=== PATIENT | male | born 1995 | race Caucasian/White ===

== ENCOUNTER 2021-03-07 19:09 | Inpatient (IN) | payer SELFPAY ==
[2021-03-07 21:04] LABS: Albumin 4.7 g/dL (3.4-5.0); Bilirubin Direct 0.3 mg/dL (0-0.2); Bilirubin Total 1.3 mg/dL (0.2-1.0); Protein, Total 7.7 g/dL (6.4-8.2)
[2021-03-07 21:17] LABS: Absolute Lymphocytes (CBC) 0.7 K/uL (0.7-4.9); Basophils % 0.1 % (0-1.3); Lymphocytes % 3.5 % (15.3-44.8); MPV 8.3 fL (7.6-11.3); RBC Red Blood Cell Count 4.92 M/uL (4.33-5.43)
[2021-03-07] MEDS ORDERED: NA CHLORIDE 0.9% 1,000 ML ONE ×2 (22:23→22:36)
[2021-03-07] MEDS ORDERED: FAMOTIDINE 20 MG/2 ML VIAL IV ONE (22:23)
[2021-03-07] MEDS ORDERED: MORPHINE 2 MG/ML SYR ONE ×2 (22:23→22:36)
[2021-03-07] MEDS ORDERED: ONDANSETRON 4 MG/2 ML VIAL ONE (22:23)
[2021-03-07 22:39] LABS: Urine Blood Negative (Negative); Urine Glucose Negative (Negative); Urine Protein Trace (Negative); Urine Specific Gravity >=1.030 (1.005-1.030); Urine pH 5.5 (5.0-7.0)
--- NOTE | 2021-03-07 23:20 | ER ---
Nurse's Notes [facility] [place] Name: Kana Zapien Age: 25 yrs Sex: Male : 1995 Arrival Date: 03/07/2021 Time: 19:32 Bed 24 Private MD: Diagnosis: Acute appendicitis with localized peritonitis;Elevated white blood cell count;Abdominal pain, Generalized Presentation: 03/07 20:15 Chief complaint: Patient states: Pt stated, " I started felling bad when I woke up at kg 0700 and started vomiting at 16:00, my stomach and back hurts". Coronavirus screen: Vaccine status: Patient reports being unvaccinated. Client presents with at least one sign or symptom that may indicate coronavirus-19. Standard/surgical mask placed on the client. Provider contacted for isolation considerations. Ebola Screen: Patient negative for fever greater than or equal to 101.5 degrees Fahrenheit, and additional compatible Ebola Virus Disease symptoms Patient denies exposure to infectious person. Patient denies travel to an Ebola-affected area in the 21 days before illness onset. Initial Sepsis Screen: Does the patient meet any 2 criteria? No. Patient's initial sepsis screen is negative. Does the patient have a suspected source of infection? No. Patient's initial sepsis screen is negative. Risk Assessment: Do you want to hurt yourself or someone else? Patient reports no desire to harm self or others. Onset of symptoms was March 07, 2021 at 07:00. 20:15 Method Of Arrival: Ambulatory kg 20:15 Acuity: COREY 4 kg Triage Assessment: 20:19 General: Appears in no apparent distress. Behavior is calm, cooperative, appropriate kg for age, quiet. Pain: Complains of pain in abdomen Pain radiates to back. GI: Reports lower abdominal pain, upper abdominal pain, nausea, vomiting. Historical: - Allergies: 20:19 No Known Allergies; kg - Home Meds: 20:19 None [Active]; kg - PMHx: 20:19 None; kg - Immunization history:: Adult Immunizations not up to date, Client reports having NOT received the Covid vaccine. - Social history:: Smoking status: Reported history of juuling and/or vaping. Patient uses alcohol, weekly. - Family history:: not pertinent. Screenin:20 Abuse screen: Denies threats or abuse. Denies injuries from another. Nutritional kg screening: No deficits noted. Tuberculosis screening: No symptoms or risk factors identified. Fall Risk None identified. Assessment: 22:00 General: Appears in no apparent distress. comfortable, Behavior is calm, cooperative, ld1 appropriate for age. Pain: Complains of pain in right lower quadrant Pain does not radiate. Pain currently is 8 out of 10 on a pain scale. Quality of pain is described as throbbing, Pain began 3 hours ago. Is continuous. 22:00 Neuro: Level of Consciousness is awake, alert, obeys commands, Oriented to person, ld1 place, time, situation. Cardiovascular: Capillary refill < 3 seconds Patient's skin is warm and dry. Respiratory: Airway is patent Respiratory effort is even, unlabored, Respiratory pattern is regular, symmetrical. GI: Abdomen is flat, non-distended, Reports lower abdominal pain, nausea, vomiting. : No signs and/or symptoms were reported regarding the genitourinary system. EENT: No signs and/or symptoms were reported regarding the EENT system. Derm: No signs and/or symptoms reported regarding the dermatologic system. Musculoskeletal: No signs and/or symptoms reported regarding the musculoskeletal system. 23:35 Reassessment: Patient appears in no apparent distress at this time. Patient and/or ld1 family updated on plan of care and expected duration. Pain level reassessed. Patient is alert, oriented x 3, equal unlabored respirations, skin warm/dry/pink. Vital Signs: 20:15 BP 129 / 72; Pulse 72; Resp 93; Temp 97.8(O); Pulse Ox 93% on R/A; Weight 83.91 kg (R); kg Height 5 ft. 10 in. (177.80 cm) (R); Pain 8/10; 22:00 BP 126 / 70; Pulse 89; Resp 18; Pulse Ox 95% on R/A; ld1 23:35 BP 123 / 74; Pulse 85; Resp 18; Pulse Ox 100% on R/A; ld1 20:15 Body Mass Index 26.54 (83.91 kg, 177.80 cm) kg ED Course: 19:32 Patient arrived in ED. cf2 19:36 Luis Antonio Benjamin MD is Attending Physician. stephanie 20:19 Triage completed. kg 20:19 Arm band placed on left wrist. kg 20:20 Patient has correct armband on for positive identification. kg 22:44 CT Abd/Pelvis - IV Contrast Only In Process Unspecified. EDMS 22:53 Chest Single View XRAY In Process Unspecified. EDMS 23:17 Cesar Hernandez MD is Hospitalizing Provider. [facility] 03/08 01:36 No provider procedures requiring assistance completed. Patient admitted, IV remains in ea place. Administered Medications: 03/07 22:07 Drug: NS 0.9% 1000 ml Route: IV; Rate: 1 bolus; Site: right antecubital; ld1 23:34 Follow up: Response: No adverse reaction; IV Status: Completed infusion; IV Intake: ld1 1000ml 22:07 Drug: Zofran (Ondansetron) 4 mg Route: IVP; Site: right antecubital; ld1 22:47 Follow up: Response: No adverse reaction ld1 22:07 Drug: morphine 2 mg Route: IVP; Site: right antecubital; ld1 22:07 Drug: Pepcid (famotidine) 20 mg Route: IVP; Site: right antecubital; ld1 22:38 Follow up: Response: No adverse reaction ld1 22:07 Drug: NS 0.9% 1000 ml Route: IV; Rate: 1 bolus; Site: right antecubital; ld1 23:34 Follow up: Response: No adverse reaction; IV Status: Completed infusion; IV Intake: ld1 1000ml 22:15 Drug: morphine 2 mg Route: IVP; Site: right antecubital; ld1 22:46 Follow up: Response: No adverse reaction ld1 22:46 Not Given (Physician Discretion): NS 0.9% 1000 ml IV at 1 bolus Per protocol; 1000 mL ld1 bolus 23:34 Drug: Zosyn (piperacillin-tazobactam) 3.375 grams Route: IVPB; Infused Over: 60 mins; ld1 Site: right antecubital; 03/08 00:40 Follow up: Response: No adverse reaction; IV Status: Completed infusion; IV Intake: ea 100ml Intake: 03/07 23:34 IV: 1000ml; Total: 1000ml. ld1 23:34 IV: 1000ml; Total: 2000ml. ld1 03/08 00:40 IV: 100ml; Total: 2100ml. ea Outcome: 03/07 23:19 Decision to Hospitalize by Provider. stephanie 03/08 01:36 Patient left the ED. jeannette 01:37 Admitted to Med/surg accompanied by tech, via wheelchair, room 216, with chart, Report ea called to Receiving nurse on second :37 Condition: stable 01:37 Instructed on the need for admit, Demonstrated understanding of instructions. Signatures: Dispatcher [employer] EDLuis Antonio Musa MD MD cha Antunez, Elena, RN RN Ruiz Obrien cf2 Alysa Ponce, RN RN ld1 Briana Lo, DEZ RN kg
--- NOTE | 2021-03-07 23:20 | EDPHYS ---
Physician Documentation [facility] Name: Kana Zapien Age: 25 yrs Sex: Male : 1995 Arrival Date: 03/07/2021 Time: 19:32 Bed 24 Private MD: Luis Antonio Rodriguez HPI: 03/07 21:54 This 25 yrs old Male presents to ER via Ambulatory with complaints of BODY stephanie PAIN, Vomiting, Back Pain, Cough. Historical: - Allergies: 20:19 No Known Allergies; kg - Home Meds: 20:19 None [Active]; kg - PMHx: 20:19 None; kg - Immunization history:: Adult Immunizations not up to date, Client reports having NOT received the Covid vaccine. - Social history:: Smoking status: Reported history of juuling and/or vaping. Patient uses alcohol, weekly. - Family history:: not pertinent. ROS: 21:54 Constitutional: Negative for fever, chills, and weight loss, Eyes: Negative for injury, stephanie pain, redness, and discharge, ENT: Negative for injury, pain, and discharge, Neck: Negative for injury, pain, and swelling, Cardiovascular: Negative for chest pain, palpitations, and edema, Respiratory: Negative for shortness of breath, cough, wheezing, and pleuritic chest pain, : Negative for injury, bleeding, discharge, and swelling, MS/Extremity: Negative for injury and deformity, Skin: Negative for injury, rash, and discoloration, Neuro: Negative for headache, weakness, numbness, tingling, and seizure, Psych: Negative for depression, anxiety, suicide ideation, homicidal ideation, and hallucinations, Allergy/Immunology: Negative for hives, rash, and allergies, Endocrine: Negative for neck swelling, polydipsia, polyuria, polyphagia, and marked weight changes, Hematologic/Lymphatic: Negative for swollen nodes, abnormal bleeding, and unusual bruising. 21:54 Abdomen/GI: Positive for abdominal pain, of the right upper quadrant, left upper quadrant, right lower quadrant and left lower quadrant. Exam: 21:54 Constitutional: This is a well developed, well nourished patient who is awake, alert, stephanie and in no acute distress. Head/Face: Normocephalic, atraumatic. Eyes: Pupils equal round and reactive to light, extra-ocular motions intact. Lids and lashes normal. Conjunctiva and sclera are non-icteric and not injected. Cornea within normal limits. Periorbital areas with no swelling, redness, or edema. ENT: Nares patent. No nasal discharge, no septal abnormalities noted. Tympanic membranes are normal and external auditory canals are clear. Oropharynx with no redness, swelling, or masses, exudates, or evidence of obstruction, uvula midline. Mucous membranes moist. Neck: Trachea midline, no thyromegaly or masses palpated, and no cervical lymphadenopathy. Supple, full range of motion without nuchal rigidity, or vertebral point tenderness. No Meningismus. Chest/axilla: Normal chest wall appearance and motion. Nontender with no deformity. No lesions are appreciated. Cardiovascular: Regular rate and rhythm with a normal S1 and S2. No gallops, murmurs, or rubs. Normal PMI, no JVD. No pulse deficits. Respiratory: Lungs have equal breath sounds bilaterally, clear to auscultation and percussion. No rales, rhonchi or wheezes noted. No increased work of breathing, no retractions or nasal flaring. Back: No spinal tenderness. No costovertebral tenderness. Full range of motion. Male : Normal genitalia with no discharge or lesions. Skin: Warm, dry with normal turgor. Normal color with no rashes, no lesions, and no evidence of cellulitis. MS/ Extremity: Pulses equal, no cyanosis. Neurovascular intact. Full, normal range of motion. Neuro: Awake and alert, GCS 15, oriented to person, place, time, and situation. Cranial nerves II-XII grossly intact. Motor strength 5/5 in all extremities. Sensory grossly intact. Cerebellar exam normal. Normal gait. Psych: Awake, alert, with orientation to person, place and time. Behavior, mood, and affect are within normal limits. 21:54 Respiratory: the patient does not display signs of respiratory distress, Respirations: normal, Breath sounds: are clear throughout. 21:54 Abdomen/GI: Inspection: abdomen appears normal, Bowel sounds: normal, Palpation: moderate abdominal tenderness, in the right upper quadrant, left upper quadrant, right lower quadrant and left lower quadrant, Liver: no appreciated palpable abnormalities, Hernia: not appreciated. Vital Signs: 20:15 BP 129 / 72; Pulse 72; Resp 93; Temp 97.8(O); Pulse Ox 93% on R/A; Weight 83.91 kg (R); kg Height 5 ft. 10 in. (177.80 cm) (R); Pain 8/10; 22:00 BP 126 / 70; Pulse 89; Resp 18; Pulse Ox 95% on R/A; ld1 23:35 BP 123 / 74; Pulse 85; Resp 18; Pulse Ox 100% on R/A; ld1 20:15 Body Mass Index 26.54 (83.91 kg, 177.80 cm) kg MDM: 21:49 Patient medically screened. [facility] 21:55 Differential diagnosis: Nonspecific abd pain, gastritis, cholecystitis, pancreatitis, stephanie appendicitis, diverticulitis, viral gastroenteritis, gastroenteritis. Data reviewed: vital signs, nurses notes, lab test result(s), EKG, radiologic studies, CT scan, plain films. Data interpreted: monitoring specialist: rate is 72 beats/min, rhythm is regular, Pulse oximetry: on room air is 93 %. Test interpretation: by ED physician or midlevel provider: plain radiologic studies. Counseling: I had a detailed discussion with the patient and/or guardian regarding: the historical points, exam findings, and any diagnostic results supporting the discharge/admit diagnosis, lab results, radiology results. 03/07 20:21 Order name: Basic Metabolic Panel; Complete Time: 21:52 kg 03/07 20:21 Order name: CBC with Diff 03/07 20:21 Order name: Hepatic Function; Complete Time: 21:52 kg 03/07 20:21 Order name: Lipase; Complete Time: 21:52 kg 03/07 20:26 Order name: Flu; Complete Time: 21:52 kg 03/07 21:42 Order name: SARS-COV-2 RT PCR; Complete Time: 21:52 [facility] 03/07 21:54 Order name: Chest Single View XRAY [facility] 03/07 21:54 Order name: CT Abd/Pelvis - IV Contrast Only [facility] 03/07 21:57 Order name: Urine Culture [facility] 03/07 21:58 Order name: Urine Culture [facility] 03/07 22:37 Order name: Urine Dipstick-Ancillary; Complete Time: 22:40 [facility] 03/07 23:23 Order name: Manual Differential [facility] 03/07 20:21 Order name: IV Saline Lock; Complete Time: 21:50 kg 03/07 20:21 Order name: Labs collected and sent; Complete Time: 21:49 kg 03/07 21:57 Order name: Urine Dipstick-Ancillary (obtain specimen); Complete Time: 22:37 stephanie 03/07 23:28 Order name: NPO EDMS Administered Medications: 22:07 Drug: NS 0.9% 1000 ml Route: IV; Rate: 1 bolus; Site: right antecubital; ld1 23:34 Follow up: Response: No adverse reaction; IV Status: Completed infusion; IV Intake: ld1 1000ml 22:07 Drug: Zofran (Ondansetron) 4 mg Route: IVP; Site: right antecubital; ld1 22:47 Follow up: Response: No adverse reaction ld1 22:07 Drug: morphine 2 mg Route: IVP; Site: right antecubital; ld1 22:07 Drug: Pepcid (famotidine) 20 mg Route: IVP; Site: right antecubital; ld1 22:38 Follow up: Response: No adverse reaction ld1 22:07 Drug: NS 0.9% 1000 ml Route: IV; Rate: 1 bolus; Site: right antecubital; ld1 23:34 Follow up: Response: No adverse reaction; IV Status: Completed infusion; IV Intake: ld1 1000ml 22:15 Drug: morphine 2 mg Route: IVP; Site: right antecubital; ld1 22:46 Follow up: Response: No adverse reaction ld1 22:46 Not Given (Physician Discretion): NS 0.9% 1000 ml IV at 1 bolus Per protocol; 1000 mL ld1 bolus 23:34 Drug: Zosyn (piperacillin-tazobactam) 3.375 grams Route: IVPB; Infused Over: 60 mins; ld1 Site: right antecubital; 03/08 00:40 Follow up: Response: No adverse reaction; IV Status: Completed infusion; IV Intake: ea 100ml Disposition Summary: 03/07/21 23:19 Hospitalization Ordered Hospitalization Status: Observation stephanie Provider: Cesar Hernandez cha Location: Telemetry/MedSur (observation) stephanie Condition: Stable stephanie Problem: new stephanie Symptoms: have improved stephanie Bed/Room Type: Standard stephanie Room Assignment: 216(03/08/21 00:23) tl1 Diagnosis - Acute appendicitis with localized peritonitis stephanie - Elevated white blood cell count stephanie - Abdominal pain, Generalized stephanie Forms: - Medication Reconciliation Form stephanie - SBAR form stephanie Signatures: Dispatcher [employer] EDLuis Antonio Musa MD MD cha Lasagna, Tonya RN RN tl1 Alysa Ponce RN RN ld1 Briana Lo RN RN kg Antunez, Elena RN ea Corrections: (The following items were deleted from the chart) 03/07 20:41 20:22 CORONAVIRUS+MR.LAB.BRZ ordered. [facility] 03/08 00:23 03/07 23:19 stephanie wolf1
[2021-03-07] MEDS ORDERED: ONDANSETRON 4 MG/2 ML VIAL IV PRN (23:26)
[2021-03-07] MEDS ORDERED: MORPHINE 4 MG/ML SYR IV PRN (23:26)
[2021-03-07] MEDS ORDERED: ACETAMINOPHEN 325 MG TABLET PO PRN (23:26)
[2021-03-07 23:38] LABS: Blood Morphology Comment NOT SEEN (NOT SEEN); Platelet Estimate ADEQ
[2021-03-07] MEDS ORDERED: PIPER/TAZO/NS 3.375gm 3.375 GM/100 ML BAG ONE (23:39)
[2021-03-07] MEDS ORDERED: D5 0.45 NS 1,000 ML IV SCH (23:45)
[2021-03-08 02:16] VITALS: BMI 26.5
[2021-03-08 05:29] LABS: Absolute Lymphocytes (CBC) 1.4 K/uL (0.7-4.9); Basophils % 0.2 % (0-1.3); Hematocrit 41.4 % (39.6-49.0); Lymphocytes % 9.4 % (15.3-44.8); MPV 8.2 fL (7.6-11.3); RBC Red Blood Cell Count 4.39 M/uL (4.33-5.43)
[2021-03-08 05:56] LABS: ALT/SGPT 34 U/L (12-78); AST/SGOT 15 U/L (15-37); Albumin 3.6 g/dL (3.4-5.0); Alkaline Phosphatase 42 U/L (45-117); BUN Blood Urea Nitrogen 11 mg/dL (7-18); Bicarbonate 29 mmol/L (21-32); Bilirubin Direct 0.3 mg/dL (0-0.2); Bilirubin Total 1.4 mg/dL (0.2-1.0); Glucose Level 143 mg/dL (74-106); Lipase 81 U/L (73-393); Potassium 3.8 mmol/L (3.5-5.1); Protein, Total 6.1 g/dL (6.4-8.2); Sodium Level 142 mmol/L (136-145)
[2021-03-08] MEDS ORDERED: Ringers Lactate 1,000 ML IV ONE (08:35)
[2021-03-08] MEDS ORDERED: MIDAZOLAM HCL 2 MG/2 ML INJ ONE (08:49)
[2021-03-08] MEDS ORDERED: dexAMETHasone 10 MG/ML VIAL ONE (08:49)
[2021-03-08] MEDS ORDERED: LIDOCAINE 1% MPF 5 ML VIAL ONE (08:49)
[2021-03-08] MEDS ORDERED: FENTANYL CITR 100 MCG/2 ML ONE (08:49)
[2021-03-08] MEDS ORDERED: propofoL 200 MG/20 ML VIAL IV ONE (08:49)
--- NOTE | 2021-03-08 08:49 | RAD REPORT ---
EXAM DESCRIPTION: RAD - Chest Single View - 03/07/2021 10:53 pm
[2021-03-08] MEDS ORDERED: ONDANSETRON 4 MG/2 ML VIAL ONE (08:50)
[2021-03-08] MEDS ORDERED: ROCURONIUM 50 MG/5 ML VIAL IV ONE (08:50)
[2021-03-08] MEDS ORDERED: PIPER/TAZO/NS 3.375gm 3.375 GM/100 ML BAG IVPB SCH ×2 (09:00)
[2021-03-08] MEDS ORDERED: FAMOTIDINE 20 MG/2 ML VIAL IV SCH (09:00)
[2021-03-08] MEDS ORDERED: BUPIVACAINE 0.5% PF 10 ML VIAL ONE (09:20)
--- NOTE | 2021-03-08 09:43 | HP ---
Date of Admission: 03/08/2021 Diagnosis: Acute appendicitis, acute abdominal pain. History Of Present Illness: This is a case of a male, who comes to us overnight with right lower amanda drant abdominal pain associated with nausea and vomiting. Patient in the ER did workup and found the patient to have appendicitis and a surgical evaluation was requested. He denies any dysuria, hematu katie, hematochezia, melena. Denies any recent travelling out of the country. Denies any family membe r sick at home. Past Medical History: None. Allergies: NONE. Past Surgical History: None. Social History: He does smoke. He does not drink alcohol. Family History: Unremarkable. Review of Systems: As above. See H and P, otherwise. 10 points, otherwise, unremarkable. Physical Examination: General: Patient is awake and alert. HEENT: Pupils are equal and reactive. Anicteric. Neck: Supple. Chest: Clear. Abdomen: Soft and depressible. There is right lower quadrant tenderness with psoas signs positive w ith localized peritonitis. Extremities: Good capillary refill. Neurologic: Cranial nerves 2 through 12 grossly within normal limits. Laboratory Data: WBC count of 18, hemoglobin 16.5, with chloride is 108. CAT scan of the abdomen an d pelvis, official report still pending, preliminary shows acute appendicitis. Assessment: A 25-year-old patient with the right lower quadrant abdominal pain, acute appendicitis. The benefits, alternatives, and risks of laparoscopic possible open appendectomy fully explained whi ch include, but not limited to, infection, bleeding, damage to adjacent structures, anesthesia compli cation, abscess, CA, and even . He also understands this may not relieve the symptoms. He migh t need more than one surgical intervention. The OR was called stat. /MODL Voice ID: [id number]
--- NOTE | 2021-03-08 10:10 | P.BOP ---
Preoperative diagnosis: acute appendicitis Postoperative diagnosis: same Primary procedure: Laparoscopic appendectomy Estimated blood loss: <10cc Specimen: barney Findings: as above Anesthesia: General Complications: None Transferred to: Recovery Room Condition: Good
[2021-03-08] MEDS ORDERED: KETOROLAC 30 MG/ML INJ ONE (10:18)
[2021-03-08] MEDS ORDERED: GLYCOPYRROLATE 0.2 MG/ML SYR ONE (10:18)
[2021-03-08] MEDS ORDERED: NEOSTIGMINE 1 MG/ML -5 ML ONE (10:20)
[2021-03-08] MEDS ORDERED: HYDROCODONE/APAP 5/325 MG TAB PO PRN (10:30)
[2021-03-08 10:42] VITALS: O2SAT 99
--- NOTE | 2021-03-08 12:46 | RAD REPORT ---
EXAM DESCRIPTION: CT - Abdomen Pelvis W Contrast - 03/08/2021 6:39 am ADDENDUM: THIS REPORT CONTAINS FINDINGS THAT MAY BE CRITICAL TO PATIENT'S CARE: The findings were verbally discussed via telephone conference with Dr. Luis Antonio Benjamin by Dr. Negron on 03/07/2021 11:08 PM CDT. The results were acknowledged and understood. Electronically signed by: Jimmy Negron DO 03/07/2021 11:08 PM CDT End of Addendum EXAM DESCRIPTION: CT Abdomen and Pelvis With Intravenous Contrast CLINICAL HISTORY: The patient is 25 years old and is Male; ABD PAIN TECHNIQUE: Axial computed tomography images of the abdomen and pelvis with intravenous contrast. S agittal and coronal reformatted images were created and reviewed. This CT exam was performed using one or more of the following dose reduction techniques: automated exposure control, adjustment of t he mA and/or kV according to patient size, and/or use of iterative reconstruction technique. DLP: 1211 mGy*cm COMPARISON: None. FINDINGS: LUNG BASES: Lung bases are clear. HEART: Visualized heart is normal. ABDOMEN: LIVER: Unremarkable. No mass. GALLBLADDER AND BILE DUCTS: Unremarkable. No calcified stones. No ductal dilation. PANCREAS: Unremarkable. No mass. No ductal dilation. SPLEEN: Unremarkable. No splenomegaly. ADRENALS: Unremarkable. No mass. KIDNEYS AND URETERS: Unremarkable. No solid mass. No hydronephrosis. STOMACH AND BOWEL: Unremarkable. No obstruction. No mucosal thickening. PELVIS: APPENDIX: Thickening of the appendix measuring up to 1.1 cm. Associated mucosal enhancement and per iappendiceal stranding. BLADDER: Bladder is decompressed. REPRODUCTIVE: Unremarkable as visualized. ABDOMEN and PELVIS: INTRAPERITONEAL SPACE: Unremarkable. No free air. No significant fluid collection. BONES/JOINTS: No acute fracture. No dislocation. SOFT TISSUES: Unremarkable. VASCULATURE: Unremarkable. No abdominal aortic aneurysm. LYMPH NODES: Unremarkable. No enlarged lymph nodes. IMPRESSION: Acute appendicitis. No perforation or abscess formation. Electronically signed by: Jimmy Negron DO 03/07/2021 11:05 PM CDT Due to temporary technical issues with the PACS/Fluency reporting system, reports are being signed by the in house radiologists without review as a courtesy to insure prompt reporting. The interpreting radiologist is fully responsible for the content of the report.
[2021-03-08 13:10] VITALS: BP 99/51; TEMP 97.9
--- NOTE | 2021-03-08 14:20 | OP ---
Date of Procedure: 03/08/2021 Surgeon: Cesar Hernandez MD Preoperative Diagnoses: Acute abdominal pain, acute appendicitis. Postoperative Diagnoses: Acute abdominal pain, acute appendicitis. Procedure: Laparoscopic appendectomy. Anesthesia: General plus local. Finding: Acute appendicitis. Indication: This is the case of a 25-year-old patient with acute abdominal pain. Fully explained th e benefits, alternatives, and risks of laparoscopic possible open appendectomy, which include, but no t limited to infection, bleeding, damage to adjacent structures, anesthesia complication, abscess, [place] , and even . He also understands this may not relieve any symptoms. He might need more than on e surgical intervention. He understood, signed a consent. Procedure In Detail: The patient was brought to the operating room, placed in supine position. Anes thesia was done without complication. Abdominal area was prepped and draped in usual sterile fashion . Marcaine 0.5% was injected for local anesthetic followed by sharp incision of the skin in the infr aumbilical region. Incision was carried down to fascia, which was opened under direct vision. Perit oneum was encountered, opened under direct vision. Vicryl #1 placed inside the fascia. Feng troca r was carefully introduced. Pneumoperitoneum was obtained. I placed 2 more trocars, 5 mm each one o f them, suprapubic and left lower quadrant under direct visualization. After obtaining pneumoperiton eum, we looked at the area of the right lower quadrant. We noticed the patient to have partially ret rocecal appendix, so in order for us to work away and do dissection, we have to use LigaSure to take some adhesions down and some of the omentum from the appendix. We visualized the base of the appendi x, seems to be spared from the inflammation, so we created a window in the base of the appendix and t ransected that with an Endo DORA 45 mm 3.5. The mesoappendix was transected with the help of LigaSure . Appendix removed from abdominal cavity using EndoCatch through the umbilical incision. The area w as irrigated, inspected. No bowel leak. No bleeding. At that moment, I proceeded to remove the tro cars under direct vision. Deflated pneumoperitoneum. Closed the fascia with 1 Vicryl. Irrigated jackson bcutaneous tissue, closed that with 3-0 chromic and skin with rian. Sponge count and instrument c ounts correct. The patient tolerated the procedure well. The patient was sent to recovery in stable condition. GABBI/MODL Voice ID: [id number] Report ID: [id number]
--- NOTE | 2021-03-08 14:25 | DS ---
Date of Discharge: 03/08/2021 Diagnosis: Acute appendicitis. Procedure: Laparoscopic appendectomy. Disposition: Home if he tolerates diet. Plan: Follow up in my office in 1 week. Call for appointment at [phone]. Keep area dry for 48 shaquille rs, then may shower. Keep rian intact. If he does not tolerate diet, then he was advised to stay with us at least overnight. GABBI/ERI Voice ID: [id number] Report ID: [id number]
== END 2021-03-08 12:57 | disposition home or self-care (01) | DRG 343 ==
LOC: ER 19:09 → ERHOLD 23:23 → 2ND 03-08 00:39 → OBSVTOIN 03-08 07:46
PROVIDERS: ADMIT Surgery; ATTEND Surgery
PROC: 0DTJ4ZZ Resection of Appendix, Percutaneous Endoscopic Approach (ICD-10-PCS; principal; 2021-03-08 09:00)
DX: K35.80 Unspecified acute appendicitis (principal); F17.210 Nicotine dependence, cigarettes, uncomplicated; Z20.822 Contact with and (suspected) exposure to COVID-19
CPT/HCPCS: 36415; 71045; 74177; 80048; 80076; 81003; 83690; 85025; 87086; 87088; 87804; 88304; 96361; 96365; 96375; 99285; G0378; J1100; J2250; J2270; J2405; J2543; J2704; J2710; J3010; J7030; J7120; J7799; Q9967; U0003